=== PATIENT | female | born 1995 | race Caucasian/White ===

== ENCOUNTER 2023-03-25 18:50 | Emergency (ER) | payer OTHER ==
[2023-03-25] MEDS ORDERED: Cephalexin 500 MG Cap PO ONE (22:12)
[2023-03-25] MEDS ORDERED: Sulfamethoxazole/Trimethoprim 800-160 MG Tab PO ONE (22:12)
== END 2023-03-25 22:29 | disposition home or self-care (01) ==
LOC: MW.ED 18:50
DX: T81.41XA Infection following a procedure, superficial incisional surgical site, initial encounter (principal); Z91.018 Allergy to other foods; Z98.82 Breast implant status
CPT/HCPCS: 99283; A9270